=== PATIENT | male | born 1975 ===

== ENCOUNTER → 2018-01-21 15:32 | Outpatient (CLI) | payer SELFPAY ==
[2018-01-24 17:06] LABS: Internal QC Validated? YES +Cl - CLEAR BKGD; Monotest Negative (Negative); Record Kit Lot#, Mono 13171517
[2018-01-24 17:06] LABS: Internal QC Validated? YES +Cl - CLEAR BKGD; Monotest Negative (Negative); Record Kit Lot#, Mono 13171517
[2018-01-25 12:18] LABS: Internal QC Validated? YES +Cl - CLEAR BKGD; Monotest POSITIVE (Negative)
[2018-01-25 12:19] LABS: Record Kit Lot#, Mono 13171517
[2018-01-25 12:20] LABS: Internal QC Validated? YES +Cl - CLEAR BKGD; Monotest POSITIVE (Negative); Record Kit Lot#, Mono 13171517
[2018-01-25 12:21] LABS: Internal QC Validated? YES +Cl - CLEAR BKGD; Monotest Negative (Negative); Record Kit Lot#, Mono 13171517
== END ==
PROVIDERS: Visit Provider Pathology Anatomic Pathology & Clinical Pathology
DX: Z00.00 Encounter for general adult medical examination without abnormal findings (principal)